=== PATIENT | female | born 1995 | race American Indian/Alaskan Native ===

== ENCOUNTER 2021-11-29 08:58 | Inpatient (IN) | payer MEDICAID ==
[2021-11-29] MEDS ORDERED: ONDANSETRON 4 MG/2 ML INJ IV PRN (11:04)
[2021-11-29] MEDS ORDERED: ePHEDrine SULFATE 50 MG/1 ML INJ IV PRN ×2 (11:04→22:02)
[2021-11-29] MEDS ORDERED: LIDOCAINE (2%) 20 MG/1 ML VIAL 20 ML MDV INFILTRATI ONE (11:04)
[2021-11-29] MEDS ORDERED: BUTORPHANOL 2 MG/1 ML INJ IV PRN ×2 (11:04)
[2021-11-29] MEDS ORDERED: LOPERAMIDE 2 MG CAP PO PRN (11:04)
[2021-11-29] MEDS ORDERED: fentaNYL 100 MCG/2 ML INJ IV PRN (11:04)
[2021-11-29] MEDS ORDERED: ACETAMINOPHEN 325 MG TAB PO PRN (11:04)
[2021-11-29] MEDS ORDERED: PROMETHAZINE 25 MG TAB PO PRN (11:04)
[2021-11-29] MEDS ORDERED: OXYTOCIN 10 UNIT/1 ML INJ IM PRN (11:04)
[2021-11-29] MEDS ORDERED: TERBUTALINE 1 MG/1 ML INJ SUB-Q PRN (11:04)
[2021-11-29] MEDS ORDERED: CARBOPROST TROMETHAMINE 250 MCG/1 ML INJ IM PRN (11:04)
[2021-11-29] MEDS ORDERED: miSOPROStol 200 MCG TAB PR PRN (11:04)
[2021-11-29] MEDS ORDERED: MINERAL OIL 30 ML ORAL LIQD PO PRN (11:04)
[2021-11-29] MEDS ORDERED: miSOPROStol 25 MCG TAB PO SCH (11:09)
[2021-11-29] MEDS ORDERED: LACTATED RINGERS 1,000 ML IV SCH (11:30)
[2021-11-29] MEDS ORDERED: OXYTOCIN DRIP 30 UNITS/500 ML BAG IV SCH ×2 (12:00)
[2021-11-29] MEDS ORDERED: MAGNESIUM SULFATE 4 GM/100 ML BAG IV ONE (12:00)
[2021-11-29] MEDS ORDERED: MAGNESIUM SULFATE 40GM/1000ML 40 GM/1,000 ML BAG IV SCH (12:00)
--- NOTE | 2021-11-29 13:11 | History and Physical Report ---
History of Present Illness Date of examination: 11/29/21 Chief complaint: lost mucous plug History of present illness: EDC Calculations by LMP: 12/09/2021 EDC Confirmation: 12/09/2021 Past History : 3 Term Births: 2 Premature Births: 0 Living Children: 2 Para: 2 Mult. Births: 0 Prev : 0 Prev. attempt? 0 Aborta: 0 Elect. Ab: 0 Spont. Ab: 0 Ectopics: 0 # 1 Delivery date: 2013 Weeks Gestation: 38 labor: no Delivery type: Anesthesia type: epidural Sex: Female weight: 6-2 # 2 Delivery date: 2014 Weeks Gestation: 38 labor: no Delivery type: Anesthesia type: none Infant Sex: Male weight: 6-7 Past Medical History: Reviewed and updated today: Allergies-seasonal Past Surgical History: Reviewed and updated today: negative General Comments - FH: Maternal greatgrandmother - stroke Social History: Patient is single Smoking History: Patient has never smoked. 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 % No Dietary Counseling Reason: pn yes Alcohol Use: no Drug Use: no Past Medical History Anesthesia Complications: negative Anemia: negative Autoimmune Disorder: negative Bleeding Disorder: negative Blood Transfusions: negative Breast Disease: negative Diabetes: negative Heart Disease: negative Hypertension: negative Hepatitis/Liver Disease: negative Kidney Disease/UTI: negative Neurologic/Epilepsy/Migraines: negative Phlebitis/Varicosities: negative Psychiatric: negative Pulmonary Disease/Asthma: negative Thyroid Disease: negative Hospitalizations: negative Surgery (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 Infection History Hx of STD: none HIV Risk Eval: low risk Hepatitis B Risk Eval: low risk Personal hx. of genital herpes: no Rash, Viral, or Febrile illness since last LMP? no Varicella/Chicken Pox Status: Previous Disease TB Risk: no Genetic History Congenital Heart Defect: Mom: no Dad: no Eric Disease: Mom: no Dad: no Thalassemia Mom: no Dad: no Neural Tube Defect Mom: no Dad: no Down's Syndrome Mom: no Dad: no Ron-Sachs Mom: no Dad: no Sickle Cell Disease/Trait Mom: no Dad: no Hemophilia Mom: no Dad: no Muscular Dystrophy Mom: no Dad: no Cystic Fibrosis Mom: no Dad: no Mehama Chorea Mom: no Dad: no Mental Retardation Mom: no Dad: no Fragile X Mom: no Dad: no Other Genetic/Chromosomal Disorder Mom: no Dad: no Child w/other defect Mom: no Dad: no Enviromental Exposures Enviromental Exposures Reviewed Xray Exposure: no Medication, drug, or alcohol use since LMP: no Chemical/Other Exposure: no Exposure to Cat Liter: no Hx of Parvovirus (Fifth Disease): no Occupational Exposure to Children: none Comments: Unemployed Active Medications (reviewed today): ondansetron HCl 4 mg tablet (ondansetron hcl) Current Allergies (reviewed today): No known allergies Past History Past Medical History: other (see HPI) Past Surgical History: other (see HPI) 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 (see HPI) Family/Genetic History: other (see HPi) Social history: no significant social history - Obstetrical History Expected Date of Delivery: 12/09/21 Actual Gestation: 38 Week(s) 4 Day(s) : 3 Para: 2 Hx # Term Pregnancies: 2 Number of Pregnancies: 0 Spontaneous Abortions: 0 Induced : 2 Medications and Allergies Allergies Allergy/AdvReac Type Severity Reaction Status Date / Time No Known Allergies Allergy Unverified 07/18/14 19:46 Home Medications Medication Instructions Recorded Confirmed Last Taken Type Mv-Mn/Iron/FA/Herbal/Digestive 1 each PO QDAY #30 tablet 07/18/14 11/22/14 11/19/14 Rx [ One Tablet] 1 tab Ondansetron [Zofran Odt] 4 mg PO Q8HR PRN #4 tab.rapdis 07/18/14 11/22/14 Unknown Rx Formula 1 PO DAILY 07/18/14 11/23/14 11/19/14 History 1 tab metroNIDAZOLE [Flagyl] 500 mg PO BID #14 tablet 07/18/14 11/22/14 Unknown Rx Active Meds: Active Medications Acetaminophen (Acetaminophen 325 Mg Tab) 650 mg PO Q4H PRN PRN Reason: Pain, Mild (1-3) Butorphanol Tartrate (Butorphanol 2 Mg/1 Ml Inj) 1 mg IV Q2H PRN PRN Reason: Pain, Moderate(4-6) LABOR PAIN Butorphanol Tartrate (Butorphanol 2 Mg/1 Ml Inj) 2 mg IV Q2H PRN PRN Reason: Pain , Severe (7-10) Carboprost Tromethamine (Carboprost Tromethamine 250 Mcg/1 Ml Inj) 250 mcg IM ONCE PRN PRN Reason: Uterine Bleeding Ephedrine Sulfate (Ephedrine Sulfate 50 Mg/1 Ml Inj) 10 mg IV Q2M PRN PRN Reason: Hypotension Fentanyl (Fentanyl 100 Mcg/2 Ml Inj) 100 mcg IV Q2H PRN PRN Reason: Pain,Severe (7-10) LABOR PAIN Oxytocin/Sodium Chloride (Pitocin/Ns 30 Unit/500ml) 30 units in 500 mls @ 2 mls/hr IV TITR CHELSI; Protocol Lactated Ringer's (Lactated Ringers) 1,000 mls @ 125 mls/hr IV DIRECT CHELSI Oxytocin/Sodium Chloride (Pitocin/Ns 30 Unit/500ml) 30 units in 500 mls @ 40 mls/hr IV TITR CHELSI; Protocol Lactated Ringer's (Lactated Ringers) 1,000 mls @ 125 mls/hr IV DIRECT CHELSI Magnesium Sulfate (Magnesium Sulfate 40gm/1000ml) 40 gm in 1,000 mls @ 50 mls/hr IV DIRECT CHELSI Loperamide HCl (Loperamide 2 Mg Cap) 2 mg PO ONCE PRN PRN Reason: give with Hemabate Mineral Oil (Mineral Oil 30 Ml Oral Liqd) 30 ml PO QHS PRN PRN Reason: Constipation Misoprostol (Misoprostol 200 Mcg Tab) 800 mcg [place] ONCE PRN PRN Reason: Uterine Bleeding Misoprostol (Misoprostol 25 Mcg Tab) 50 mcg PO ONCE CHELSI Stop: 11/30/21 11:08 Ondansetron HCl (Ondansetron 4 Mg/2 Ml Inj) 4 mg IV Q8H PRN PRN Reason: Nausea And Vomiting Oxytocin (Oxytocin 10 Unit/1 Ml Inj) 10 unit IM ONCE PRN PRN Reason: Uterine Bleeding Promethazine HCl (Promethazine 25 Mg Tab) 25 mg PO Q6H PRN PRN Reason: Nausea And Vomiting Terbutaline Sulfate (Terbutaline 1 Mg/1 Ml Inj) 0.25 mg SUB-Q ONCE PRN PRN Reason: Hyperstimulation/Hypertonicity Review of Systems All systems: negative - Vital Signs Vital signs: Vital Signs Pulse BP Pulse Ox 92 H 154/92 100 11/29/21 10:11 11/29/21 10:11 11/29/21 10:11 Temp Pulse Resp BP Pulse Ox 95 H 18 131/73 99 11/29/21 13:06 11/29/21 10:14 11/29/21 12:58 11/29/21 13:06 - Physical Exam Breasts: Positive: normal Cardiovascular: Regular rate Lungs: Positive: Normal air movement Abdomen: Positive: normal appearance, soft Genitourinary (Female): Positive: normal external genitalia, normal perenium Vagina: Positive: normal moisture Extremities: Positive: normal Deep Tendon Reflex Grade: Normal +2 - Obstetrical FHR: category 1 Uterine Contraction Monitor Mode: External Cervical Dilatation: 1 Uterine Contraction Pattern: Regular Uterine Tone Measurement Phase: Contraction Uterine Contraction Intensity: Mild Results Result Diagrams: 11/29/21 13:15 11/29/21 13:15 All other labs normal. Assessment and Plan 26 year old, at 38.4 weeks gestation. Presented to triage with CO "lost mucous plug". Upon assessment patient had several elevated BP's 150's/90's . PreE labs ordered. Admit for IOL for gestational HTN vs preeclampsia. Plan for cytotec PO. will hold mag nesium sulfate for active labor if blood pressures are not in severe range. GBS NEG - Patient Problems (1) 38 weeks gestation of Current Visit: Yes Status: Acute (2) Elevated blood pressure complicating in third trimester, antepart um Current Visit: Yes Status: Acute
[2021-11-29 13:45] LABS: Hematocrit 31.6 % (30.3-42.9); Hemoglobin 10.2 gm/dl (10.1-14.3); Mean Corpuscular HGB Conc 32 % (30-34); Mean Corpuscular Volume 77 fl (79-97); Platelet Count 191 K/mm3 (140-440); Red Blood Count 4.11 M/mm3 (3.65-5.03); Red Cell Distribution Width 15.1 % (13.2-15.2)
[2021-11-29 14:08] LABS: Alanine Aminotransferase 11 units/L (7-56); Uric Acid 3.5 mg/dL (3.5-7.6)
[2021-11-29] MEDS: LACTATED RINGERS 1,000 ML IV SCH ×2 (16:43→20:21)
--- NOTE | 2021-11-29 16:59 | Event Note ---
Date: 11/29/21 reviewed b/p's improved since admission, will hold mag sulfate at this time. no s/s of pre-e. pre-e blood work normal, waiting on urine to be sent for protein.
[2021-11-29] MEDS ORDERED: NALOXONE 0.4 MG/1 ML INJ IV PRN (22:02)
--- NOTE | 2021-11-29 22:43 | Anesthesia Consultation ---
Anesthesia Consult and Med Hx Date of service: 11/29/21 - Airway Anesthetic Teeth Evaluation: Poor ROM Head & Neck: Adequate Mental/Hyoid Distance: Adequate Mallampati Class: Class II Intubation Access Assessment: Probably Good - Pulmonary Exam CTA: Yes - Cardiac Exam Cardiac Exam: RRR - Pre-Operative Health Status ASA Pre-Surgery Classification: ASA3 Proposed Anesthetic Plan: Epidural - Pulmonary Hx Smoking: No Hx Asthma: No COPD: No Hx Pneumonia: No - Cardiovascular System Hx Hypertension: Yes (PIH) - Central Nervous System Hx Seizures: No Hx Psychiatric Problems: No - Endocrine Hx Renal Disease: No Hx End Stage Renal Disease: No Hx Hypothyroidism: No Hx Hyperthyroidism: No - Hematic Hx Anemia: No Hx Sickle Cell Disease: No - Other Systems Hx Alcohol Use: No Hx Substance Use: No
--- NOTE | 2021-11-29 22:46 | Progress Note ---
Labor Epidural - Labor Epidural Start Time: 22:24 Stop Time: 22:28 Performed by:: TIERNEY CALRSON Procedure: Patient is requesting a laboring epidural for laboring pain. Patient IDed, H&P reviewed, all questions and concerns were answered, and consent was signed. Timeout was performed at bedside. Patient in sitting position. Sterile prep and drape was performed. [3] ml of 1% lidocaine skin wheal at L[3]- L [4]. 17- gauge Tuohy epidural needle was advanced to loss of resistance with saline technique 8cm. Single dural perforation via 25 gauge spinal needle placed through the shaft of Epidural needle. Positive CSF via spinal needle. Negative CSF negative blood via Epidural needle. Epidural catheter advanced to [12] centimeters. [NEGATIVE] Aspiration [NEGATIVE] test dose. Negative Paresthesia. Sterile dressing applied. Patient tolerated procedure.
[2021-11-29] MEDS ORDERED: fentaNYL-BUPIV 2 MCG/ML-0.125% 200 MCG/100 ML BAG EPIDURAL SCH (23:00)
--- NOTE | 2021-11-29 23:08 | Procedure Note ---
OB Delivery Note - Delivery Date of Delivery: 11/29/21 Certification Officer: ASHANTI BLACK (PANCHO Hernandez) Estimated blood loss: 100cc - Vaginal Delivery presentation: vertex Delivery position: OA (ELIU) Intrapartum events: other(please specify) (GHTN) Delivery induction: oxytocin Delivery augmentation: rupture of membranes Delivery monitor: external FHT, internal uterine Route of delivery: Delivery placenta: spontaneous Delivery cord: 3 umbilical vessels Episiotomy: none Delivery laceration: none Anesthesia: epidural Delivery comments: baby girl birthed over intact perineum, placed skin to skin on mother's baby. 3 vessel cord clamped and cut. placenta delivered intact and completed.no lacerations to repair. Apgars 8/9, all counts correct. mother and infant remain LDR stable. - Infant A at 1 minute: 8 (7lb 14oz) at 5 minutes: 9 Infant Gender: Female
[2021-11-30] MEDS ORDERED: ACETAMINOPHEN 325 MG TAB PO PRN (04:36)
[2021-11-30] MEDS ORDERED: PROMETHAZINE 25 MG RECT SUPP PR PRN (04:36)
[2021-11-30] MEDS ORDERED: LANOLIN/ZINC/DIMETHICONE (LANSINOH) 7 GM TP PRN (04:36)
[2021-11-30] MEDS ORDERED: MAGNESIUM HYDROXIDE (MOM) ORAL LIQD UDC PO PRN (04:36)
[2021-11-30] MEDS ORDERED: BENZOCAINE/MENTHOL 20/0.5% TOP SPRAY 56 GM TP PRN (04:36)
[2021-11-30] MEDS ORDERED: WITCH HAZEL/ GLYCERIN PAD TP PRN (04:36)
[2021-11-30] MEDS ORDERED: PROMETHAZINE 25 MG TAB PO PRN (04:36)
[2021-11-30] MEDS ORDERED: diphenhydrAMINE 25 MG CAP PO PRN (04:36)
[2021-11-30] MEDS: IBUPROFEN 800 MG TAB PO SCH ×3 (06:10→17:18)
--- NOTE | 2021-11-30 09:04 | Progress Note ---
Assessment and Plan A: 26 y.o. s/p . - Patient Problems (1) (normal spontaneous vaginal delivery) Current Visit: Yes Status: Acute Plan to address problem: Continue with care. Anticipate on 12/01/2021. Subjective - Subjective Date of service: 11/30/21 Principal diagnosis: s/p Patient reports: appetite normal, voiding normally, pain well controlled, ambulating normally : doing well Objective - Vital Signs Latest vital signs: Vital Signs Temp Pulse Resp BP BP Pulse Ox Pulse Ox 11/30/21 02:44 97.9 F 100 H 20 119/64 100 100 11/30/21 02:02 107 H 99 11/30/21 02:00 95 H 124/80 11/30/21 01:57 95 H 100 11/30/21 01:52 83 100 11/30/21 01:47 85 100 11/30/21 01:44 82 126/64 11/30/21 01:42 94 H 100 11/30/21 01:37 80 100 11/30/21 01:32 86 100 11/30/21 01:30 80 124/68 11/30/21 01:27 79 100 11/30/21 01:22 83 100 11/30/21 01:17 98 H 100 11/30/21 01:15 90 139/58 11/30/21 01:12 88 100 11/30/21 01:07 93 H 100 11/30/21 01:02 81 100 11/30/21 00:59 85 111/58 11/30/21 00:57 90 100 11/30/21 00:52 97 H 100 11/30/21 00:47 98 H 100 11/30/21 00:45 102 H 108/65 11/30/21 00:42 104 H 100 11/30/21 00:37 88 100 11/30/21 00:32 88 100 11/30/21 00:29 89 114/64 11/30/21 00:27 95 H 100 11/30/21 00:22 98 H 100 11/30/21 00:17 99 H 100 11/30/21 00:15 105 H 121/70 11/30/21 00:12 94 H 100 11/30/21 00:07 101 H 100 11/30/21 00:02 95 H 100 11/29/21 23:59 87 93 11/29/21 23:57 85 99 11/29/21 23:52 85 99 11/29/21 23:51 87 91 11/29/21 23:47 96 H 97 11/29/21 23:45 83 111/59 11/29/21 23:42 81 100 11/29/21 23:41 87 94 11/29/21 23:37 90 99 11/29/21 23:32 83 100 11/29/21 23:29 83 124/61 11/29/21 23:27 87 99 11/29/21 23:22 92 H 100 11/29/21 23:17 88 100 11/29/21 23:15 89 126/59 11/29/21 23:12 90 100 11/29/21 23:07 92 H 100 11/29/21 23:02 83 100 11/29/21 22:57 119 H 100 11/29/21 22:55 80 133/69 91 11/29/21 22:52 94 H 100 11/29/21 22:51 100 H 127/70 11/29/21 22:48 85 116/65 11/29/21 22:47 98 H 100 11/29/21 22:45 85 121/62 11/29/21 22:42 87 117/61 100 11/29/21 22:39 97 H 135/72 11/29/21 22:37 94 H 100 11/29/21 22:36 101 H 141/69 11/29/21 22:34 93 H 127/60 11/29/21 22:32 108 H 100 11/29/21 22:31 102 H 150/86 11/29/21 22:28 102 H 163/75 11/29/21 22:27 100 H 100 11/29/21 22:22 104 H 100 11/29/21 22:21 110 H 152/77 11/29/21 22:17 104 H 100 11/29/21 22:12 99 H 100 11/29/21 22:07 111 H 97 11/29/21 22:06 115/68 11/29/21 22:02 106 H 100 11/29/21 21:57 117 H 66 L 11/29/21 21:56 95 H 83 L 11/29/21 21:52 99 H 95 11/29/21 21:51 100 H 120/61 11/29/21 21:50 82 L 11/29/21 21:47 103 H 100 11/29/21 21:44 100 H 94 11/29/21 21:42 106 H 99 11/29/21 21:37 99 H 100 11/29/21 21:36 98 H 132/67 11/29/21 21:32 98 H 100 11/29/21 21:27 97 H 100 11/29/21 21:22 98 H 135/83 100 11/29/21 21:17 100 H 100 11/29/21 21:12 97 H 100 11/29/21 21:07 101 H 137/77 100 11/29/21 21:02 102 H 100 11/29/21 20:57 95 H 100 11/29/21 20:52 99 H 129/72 99 11/29/21 20:47 101 H 100 11/29/21 20:42 95 H 100 11/29/21 20:37 99 H 100 11/29/21 20:36 96 H 124/76 11/29/21 20:32 103 H 100 11/29/21 20:27 105 H 100 11/29/21 20:22 111 H 99 11/29/21 20:21 98 H 136/64 11/29/21 20:17 103 H 94 11/29/21 20:12 97 H 98 11/29/21 20:07 95 H 97 11/29/21 20:02 104 H 99 11/29/21 19:57 122 H 98 11/29/21 19:52 126 H 98 11/29/21 19:51 101 H 129/66 11/29/21 19:47 104 H 100 11/29/21 19:42 100 H 99 11/29/21 19:37 94 H 97 11/29/21 19:32 102 H 98 11/29/21 19:27 96 H 97 11/29/21 19:22 102 H 132/91 98 11/29/21 19:17 91 H 98 11/29/21 19:12 104 H 98 11/29/21 19:07 90 99 11/29/21 19:06 101 H 124/75 11/29/21 19:02 100 H 98 11/29/21 18:57 107 H 97 11/29/21 18:52 92 H 98 11/29/21 18:51 97 H 126/84 11/29/21 18:47 86 99 11/29/21 18:42 93 H 98 11/29/21 18:38 90 143/83 11/29/21 18:37 97 H 99 11/29/21 18:32 113 H 98 11/29/21 18:27 98 H 98 11/29/21 18:22 105 H 125/79 99 11/29/21 18:17 95 H 99 11/29/21 18:12 95 H 99 11/29/21 18:07 96 H 99 11/29/21 18:06 98 H 135/84 11/29/21 18:02 90 100 11/29/21 17:57 98 H 100 11/29/21 17:52 91 H 100 11/29/21 17:51 102 H 119/71 11/29/21 17:47 104 H 99 11/29/21 17:42 97 H 99 11/29/21 17:37 97 H 126/73 99 11/29/21 17:32 99 H 100 11/29/21 17:27 92 H 100 11/29/21 17:26 98.3 F 16 11/29/21 17:24 98 H 133/68 11/29/21 17:23 64 88 11/29/21 17:22 66 89 11/29/21 17:15 108 H 99 11/29/21 17:10 100 H 99 11/29/21 17:06 106 H 118/83 11/29/21 17:05 101 H 100 11/29/21 17:00 111 H 97 11/29/21 16:55 98.7 F 99 H 16 121/84 99 11/29/21 16:51 100 H 121/84 11/29/21 16:50 100 H 100 11/29/21 16:45 95 H 100 11/29/21 16:40 110 H 100 11/29/21 16:36 96 H 115/81 11/29/21 16:35 104 H 100 11/29/21 16:30 111 H 100 11/29/21 16:25 117 H 99 11/29/21 16:22 113 H 112/59 11/29/21 16:20 117 H 99 11/29/21 16:19 99.2 F 16 11/29/21 16:15 126 H 99 11/29/21 16:10 115 H 99 11/29/21 16:06 127 H 124/73 11/29/21 16:05 115 H 97 11/29/21 16:00 118 H 98 11/29/21 15:55 111 H 99 11/29/21 15:53 100 H 117/77 11/29/21 15:50 118 H 99 11/29/21 15:45 132 H 99 11/29/21 15:40 134 H 99 11/29/21 15:37 115 H 119/75 11/29/21 15:35 114 H 99 11/29/21 15:30 125 H 99 11/29/21 15:25 96 H 99 11/29/21 15:20 94 H 97 11/29/21 15:15 107 H 98 11/29/21 15:13 98.2 F 99 H 16 122/73 99 11/29/21 15:10 99 H 100 11/29/21 15:09 107 H 89 11/29/21 15:08 100 11/29/21 15:07 90 122/73 11/29/21 15:05 96 H 100 11/29/21 15:00 87 100 11/29/21 14:55 82 100 11/29/21 14:53 80 135/74 11/29/21 14:50 89 100 11/29/21 14:45 98 H 100 11/29/21 13:45 94 H 113/66 11/29/21 13:29 130 H 116/76 11/29/21 13:20 106 H 91 11/29/21 13:16 93 H 100 11/29/21 13:13 98 H 121/70 11/29/21 13:11 95 H 100 11/29/21 13:06 95 H 99 11/29/21 13:01 87 100 11/29/21 12:58 101 H 131/73 11/29/21 12:56 98 H 100 11/29/21 12:50 98 H 99 11/29/21 12:45 100 H 113/73 100 11/29/21 12:40 96 H 100 11/29/21 12:35 103 H 100 11/29/21 12:28 110 H 116/72 11/29/21 12:26 103 H 99 11/29/21 12:23 110 H 90 11/29/21 12:21 100 H 100 11/29/21 12:16 83 99 11/29/21 12:14 82 116/73 11/29/21 12:11 86 98 11/29/21 12:06 100 H 98 11/29/21 12:01 87 99 11/29/21 11:59 90 113/73 11/29/21 11:56 89 100 11/29/21 11:51 110 H 99 11/29/21 11:46 89 100 11/29/21 11:44 99 H 121/81 11/29/21 11:41 86 99 11/29/21 11:36 89 100 11/29/21 11:31 88 100 11/29/21 11:28 82 136/84 11/29/21 11:26 94 H 99 11/29/21 11:21 87 100 11/29/21 11:16 82 100 11/29/21 11:14 93 H 146/88 11/29/21 11:11 88 99 11/29/21 11:06 95 H 100 11/29/21 11:01 86 99 11/29/21 10:59 84 134/75 11/29/21 10:56 84 100 11/29/21 10:51 78 100 11/29/21 10:46 94 H 100 11/29/21 10:44 90 156/93 11/29/21 10:41 94 H 99 11/29/21 10:36 93 H 99 11/29/21 10:31 79 99 11/29/21 10:29 93 H 135/95 11/29/21 10:26 83 100 11/29/21 10:21 93 H 100 11/29/21 10:16 94 H 100 11/29/21 10:15 82 130/81 11/29/21 10:14 80 18 130/81 100 11/29/21 10:11 92 H 154/92 100 Intake and Output 11/29/21 11/30/21 11/30/21 22:59 06:59 14:59 Intake Total 484.301 Balance 484.301 Intake: IV 484.301 Lactated Ringers 1,000 ml 454.167 @ 125 mls/hr IV DIRECT CHELSI Rx#:[id number] PITOCin/NS 30 UNIT/500ML 30.134 30 units In 500 ml @ 2 mls/hr IV TITR CHELSI Rx#: [id number] - Exam Cardiovascular: Present: Regular rate Lungs: Present: Normal air movement Abdomen: Present: normal appearance, soft Vulva: both: normal Uterus: Present: normal, firm, other (Light lochia rubra noted.) Extremities: Present: normal - Labs Labs: Abnormal lab results 11/29/21 11/29/21 11/30/21 Range/Units 13:15 13:15 00:40 MCV 77 L (79-97) fl MCH 25 L (28-32) pg Creatinine 0.4 L (0.6-1.2) mg/dL Magnesium 1.30 L (1.7-2.3) mg/dL
[2021-11-30] MEDS: PRENATAL VIT27-FE FUMARATE-FOLIC ACID VIT TAB PO SCH (09:41)
[2021-11-30] MEDS: DOCUSATE SODIUM 100 MG CAP PO SCH ×2 (09:41→21:56)
[2021-11-30] MEDS: FERROUS SULFATE 325 MG TAB PO SCH ×2 (09:41→21:56)
--- NOTE | 2021-11-30 12:38 | Post Anesthesia Evaluation ---
- Post Anesthesia Evaluation Patient Participated: Yes Airway Patent: Yes Stable Respiratory Function: Yes Nausea/Vomiting: No Temp > 96.8F: Yes Pain Manageable: Yes Adequeate Hydration: Yes Anesthesia Complications: No Block Receding Appropriately: Yes Patient on Ventilator: No
[2021-11-30 15:28] LABS: Hematocrit 28.3 % (30.3-42.9); Hemoglobin 8.9 gm/dl (10.1-14.3)
[2021-12-01] MEDS: IBUPROFEN 800 MG TAB PO SCH ×3 (00:42→12:30)
[2021-12-01 02:15] LABS: Bacteria,Urine 1+ /HPF (Negative); Calcium Oxalate Crystals,Urine FEW; Mucus,Urine FEW /HPF
[2021-12-01 02:16] LABS: Creatinine,Urine 195.4 mg/dL (0.1-20.0); Protein/Creatinine Ratio,Urine 0.21
[2021-12-01 02:25] LABS: Color,Urine Yellow (Yellow)
[2021-12-01 09:08] VITALS: BP 127/74
[2021-12-01] MEDS: PRENATAL VIT27-FE FUMARATE-FOLIC ACID VIT TAB PO SCH (09:55)
[2021-12-01] MEDS: FERROUS SULFATE 325 MG TAB PO SCH (09:55)
[2021-12-01] MEDS: DOCUSATE SODIUM 100 MG CAP PO SCH (09:55)
--- NOTE | 2021-12-01 12:55 | Discharge Summary ---
Providers - Providers Date of Admission: 11/29/21 08:59 Date of discharge: 12/01/21 Attending physician: MICHELE JORDAN 11/30/21 04:36 Consult to Electrical Solderer [CONS] Routine Reason For Exam: assistance with , SNS Primary care physician: MICHELE JORDAN Hospitalization Reason for admission: active labor Delivery: Episiotomy: none Laceration: none Other procedures: none complications: none Discharge diagnosis: IUP at term delivered [place] baby: female Hospital course: S: Pt doing well. Voiding, ambulating, passing flatus okay. O: VSS. H/H 8.9/28.3, asymptomatic anemia of delivery. Minimal bleeding noted. A: 26 y.o. s/p . In good condition . P: Discharge home with instructions. Pt to schedule visit in the office in 4-6 weeks. Condition at discharge: Good Disposition: 01 HOME / SELF CARE / HOMELESS - Discharge Diagnoses (1) (normal spontaneous vaginal delivery) Status: Acute Plan - Discharge Medications Prescriptions: Docusate Sodium [Colace] 100 mg PO BID PRN #60 capsule PRN Reason: Constipation Ferrous Sulfate [Feosol 325 MG tab] 325 mg PO QDAY #30 tablet Ibuprofen [Motrin] 800 mg PO Q8HR PRN #30 tablet PRN Reason: Pain, Moderate (4-6) - Provider Discharge Summary Activity: routine, no sex for 6 weeks, no heavy lifting 4 weeks, no strenuous exercise Diet: routine Instructions: routine Additional instructions: [] Smoking cessation referral if applicable(refer to patient education folder for contact #) [] Refer to [facility] Booklet Call your doctor immediately for: * Fever > 100.5 * Heavy vaginal bleeding ( >1 pad per hour) * Severe persistent headache * Shortness of breath * Reddened, hot, painful area to leg or breast - Follow up plan Follow up: MICHELE JORDAN MD [Primary Care Provider] - 7 Days (- Congratulations on the of your baby girl! - Thank you for allowing us to take care of you! - Please schedule your visit in the office in 4-6 weeks. - Should you have any questions or concerns after discharge, please do not hesitate to call us at . ) Forms: [facility] Discharge Summary
== END 2021-12-01 16:18 | disposition home or self-care (01) | DRG 775 ==
LOC: TRG 08:58 → APU 08:59 → LD 09:00 → TRG 13:06 → OB 11-30 02:46
PROVIDERS: ADMIT Obstetrics & Gynecology; ATTEND Obstetrics & Gynecology
PROC: 10E0XZZ Delivery of Products of Conception, External Approach (ICD-10-PCS; principal; 2021-11-29)
PROC: 3E0R3BZ Introduction of Anesthetic Agent into Spinal Canal, Percutaneous Approach (ICD-10-PCS; 2021-11-29)
PROC: 00HU33Z Insertion of Infusion Device into Spinal Canal, Percutaneous Approach (ICD-10-PCS; 2021-11-29)
PROC: 3E033VJ Introduction of Other Hormone into Peripheral Vein, Percutaneous Approach (ICD-10-PCS; 2021-11-29)
DX: O13.4 Gestational [pregnancy-induced] hypertension without significant proteinuria, complicating childbirth (principal); Z37.0 Single live birth; Z20.822 Contact with and (suspected) exposure to COVID-19; O90.81 Anemia of the puerperium; Z3A.38 38 weeks gestation of pregnancy
CPT/HCPCS: 36415; 81001; 82565; 82570; 83615; 83735; 84156; 84450; 84460; 84550; 85014; 85018; 85027; 86592; 86850; 86900; 86901; G0378; J2590; J7120; U0003